=== PATIENT | male | born 1965 | race Caucasian/White ===

== ENCOUNTER 2018-05-15 10:40 | Inpatient (IN) | payer MEDICAID ==
[~2018-05-15] VITALS: Ht 177.8 cm; Wt 98.5 kg
[~2018-05-15 10:40] MED LIST: ASPI81TA30 PO; DIAZ10TA PO; LISI40TA4 PO; MECL-111 PO; METF500T PO; METO-292 PO; METO50TA16 PO
[2018-05-15] MEDS ORDERED: normal saline 1000ML IV soln IVB ONE (12:00)
[2018-05-15] MEDS ORDERED: ondansetron/PF 4mg/2ml inj IV ONE (12:00)
[2018-05-15 12:11] LABS: BASOPHILS # (AUTO) 0.1 X10'3 (0-0.2); BASOPHILS % (AUTO) 0.7 % (0-1); EOSINOPHILS # (AUTO) 0.1 X10'3 (0-0.9); EOSINOPHILS % (AUTO) 1.1 % (0-6); HEMATOCRIT 33.5 % (42.0-52.0); HEMOGLOBIN 11.8 g/dl (14.0-17.9); LYMPHOCYTES # (AUTO) 1.4 X10'3 (1.1-4.8); LYMPHOCYTES % (AUTO) 16.7 % (21-51); MEAN CORPUSCULAR HEMOGLOBIN 32.9 PG (27.0-31.0); MEAN CORPUSCULAR HGB CONC 35.2 % (33.0-36.5); MEAN CORPUSCULAR VOLUME 93.4 FL (78-98); MEAN PLATELET VOLUME 7.3 FL (7.4-10.4); MONOCYTES # (AUTO) 0.8 X10'3 (0-0.9); MONOCYTES % (AUTO) 9.8 % (2-12); NEUTROPHILS # (AUTO) 6.1 X10'3 (1.8-7.7); NEUTROPHILS % (AUTO) 71.7 % (42-75); PLATELET COUNT 194 X10'3 (140-440); RED BLOOD COUNT 3.58 X10'6 (4.70-6.10); RED CELL DISTRIBUTION WIDTH 13.4 % (11.5-14.5); WHITE BLOOD COUNT 8.6 X10'3 (4.5-11.0)
[2018-05-15] MEDS ORDERED: BUTA1TAB52 PO (12:14)
[2018-05-15] MEDS ORDERED: AMIT75TA2 PO (12:14)
[2018-05-15] MEDS ORDERED: GABA-532 PO (12:14)
[2018-05-15 12:25] LABS: ANION GAP 2 (8-16); BILIRUBIN,TOTAL 0.4 MG/DL (0.1-1.0); BLOOD UREA NITROGEN 23 MG/DL (7-18); BUN/CREATININE RATIO 13.8 (5.4-32.0); CALCIUM 8.7 MG/DL (8.5-10.1); CHLORIDE 98 MMOL/L (99-107); CREATININE 1.67 MG/DL (0.60-1.10); GLUCOSE 127 MG/DL (70-104); POTASSIUM 4.3 MMOL/L (3.5-5.1); SODIUM 136 MMOL/L (135-145); TOTAL CARBON DIOXIDE 35.7 MMOL/L (24-32); TOTAL PROTEIN 7.8 G/DL (6.4-8.2); eGFR 43 ML/MIN
[2018-05-15 12:26] LABS: ALANINE AMINOTRANSFERASE 31 U/L (12-78); ALBUMIN/GLOBULIN RATIO 1.1 (1.1-1.5); ALKALINE PHOSPHATASE 55 IU/L (46-116); ASPARTATE AMINO TRANSFERASE 23 U/L (10-37)
[2018-05-15 12:37] LABS: MAGNESIUM 4.2 MG/DL (1.5-2.4)
[2018-05-15] MEDS ORDERED: OXYC-658 PO (13:04)
[2018-05-15] MEDS ORDERED: PANT40TA4 PO (13:04)
[2018-05-15] MEDS ORDERED: METF500T PO (13:04)
[2018-05-15] MEDS ORDERED: ONDA8TAB13 PO (13:04)
[2018-05-15] MEDS ORDERED: LORA10TA7 PO (13:04)
[2018-05-15] MEDS ORDERED: MORP60CP14 PO (13:04)
[2018-05-15] MEDS ORDERED: LISI-600 PO (13:04)
[2018-05-15] MEDS ORDERED: morphine 4 MG/ML inj SYRINge IV PRN ×2 (15:20)
[2018-05-15] MEDS ORDERED: acetaminophen 325mg tablet PO PRN ×2 (15:20)
[2018-05-15] MEDS ORDERED: mag hydrox/Alum hydrox/simeth 30ml oral suspension PO PRN (15:20)
[2018-05-15] MEDS ORDERED: diphenhydrAMINE 25mg capsule PO PRN (15:20)
[2018-05-15] MEDS ORDERED: HYDROcodone/acetaminophen 10/325mg tab PO PRN (15:20)
[2018-05-15] MEDS ORDERED: diphenhydrAMINE 50 mg/ml inj IV PRN (15:20)
[2018-05-15] MEDS ORDERED: HYDROcodone/acetaminophen 5mg/325mg tablet PO PRN (15:20)
[2018-05-15] MEDS ORDERED: magnesium hydroxide 30ml (MOM) UD suspension PO PRN (15:20)
[2018-05-15] MEDS ORDERED: metoclopramide 5 mg/ml inj IV PRN (15:20)
[2018-05-15] MEDS ORDERED: bisacodyl 10mg suppository rectal RC PRN (15:20)
[2018-05-15] MEDS ORDERED: ondansetron/PF 4mg/2ml inj IV PRN (15:20)
[2018-05-15] MEDS ORDERED: HYDROmorphone 1 mg/ml syringe IV PRN (15:20)
[2018-05-15] MEDS ORDERED: acetaminophen 650mg rectal suppository RC PRN (15:20)
[2018-05-15] MEDS ORDERED: dextrose ORAL solution 15 GM/59 ML bottle PO PRN ×2 (15:30)
[2018-05-15] MEDS ORDERED: glucagon, human recombinant 1mg kit SUBCUT PRN (15:30)
[2018-05-15] MEDS ORDERED: MESSAGE TO PHARMACY PO ONE (15:30)
[2018-05-15] MEDS ORDERED: insulin Lispro (HumaLOG) vial - multi-dose SQ SCH (15:30)
[2018-05-15] MEDS ORDERED: dextrose 50%-water 50ml dispensing syringe IV PRN ×2 (15:30)
[2018-05-15] MEDS: normal saline 1000ml 1,000 ML IV SCH (15:36)
[2018-05-15] MEDS: HYDROmorphone 1 mg/ml syringe IV PRN (16:10)
[2018-05-15 16:35] LABS: HEMOGLOBIN A1C 6.1 % (4.5-6.2)
[2018-05-15 16:44] LABS: CREATINE KINASE 155 U/L (39-308); LIPASE 72 U/L (73-393); TROPONIN I < 0.04 NG/ML (0.0-0.05)
[2018-05-15 18:26] LABS: PARTIAL THROMBOPLASTIN TIME 26 SECONDS (22-32); PROTHROMBIN TIME 10.7 SECONDS (9.0-12.0)
[2018-05-15 19:59] VITALS: BP 166/101
[2018-05-15] MEDS: calcium gluconate inj. 1 GM in normal saline 100ml IV soln 90 ML IV SCH (20:39)
[2018-05-15] MEDS ORDERED: temazepam 15mg capsule PO PRN (21:00)
[2018-05-15] MEDS: lactulose 20gm/30ml cup PO SCH (21:08)
[2018-05-15] MEDS: docusate sod 100mg capsule PO SCH (21:09)
[2018-05-15] MEDS: heparin, porcine 5000 units/ml vial SQ SCH (21:09)
[2018-05-15] MEDS: polyethylene glycol 3350 17gm powd pack PO SCH (22:42)
[2018-05-16] VITALS: BP 167/94
[2018-05-16] MEDS ORDERED: AMIT150T PO (00:50)
[2018-05-16] MEDS: normal saline 1000ml 1,000 ML IV SCH (01:55)
[2018-05-16] MEDS: lactulose 20gm/30ml cup PO SCH ×3 (02:00→13:54)
[2018-05-16] MEDS: HYDROmorphone 1 mg/ml syringe IV PRN ×2 (05:25→17:18)
[2018-05-16 05:54] LABS: BASOPHILS % (AUTO) 0.9 % (0-1); EOSINOPHILS # (AUTO) 0.2 X10'3 (0-0.9); EOSINOPHILS % (AUTO) 3.3 % (0-6); HEMOGLOBIN 10.5 g/dl (14.0-17.9); LYMPHOCYTES # (AUTO) 1.1 X10'3 (1.1-4.8); LYMPHOCYTES % (AUTO) 20.2 % (21-51); MEAN CORPUSCULAR HEMOGLOBIN 32.4 PG (27.0-31.0); MEAN CORPUSCULAR HGB CONC 34.8 % (33.0-36.5); MEAN PLATELET VOLUME 7.6 FL (7.4-10.4); MONOCYTES # (AUTO) 0.6 X10'3 (0-0.9); MONOCYTES % (AUTO) 10.7 % (2-12); NEUTROPHILS # (AUTO) 3.4 X10'3 (1.8-7.7); NEUTROPHILS % (AUTO) 64.9 % (42-75); PLATELET COUNT 176 X10'3 (140-440); RED BLOOD COUNT 3.23 X10'6 (4.70-6.10); RED CELL DISTRIBUTION WIDTH 13.6 % (11.5-14.5); WHITE BLOOD COUNT 5.3 X10'3 (4.5-11.0)
[2018-05-16 06:05] LABS: ALANINE AMINOTRANSFERASE 27 U/L (12-78); ALBUMIN 3.6 G/DL (3.4-5.0); ALBUMIN/GLOBULIN RATIO 1.1 (1.1-1.5); ALKALINE PHOSPHATASE 50 IU/L (46-116); ANION GAP 5 (8-16); ASPARTATE AMINO TRANSFERASE 23 U/L (10-37); BILIRUBIN,TOTAL 0.6 MG/DL (0.1-1.0); BLOOD UREA NITROGEN 16 MG/DL (7-18); BUN/CREATININE RATIO 10.9 (5.4-32.0); CALCIUM 7.9 MG/DL (8.5-10.1); CHLORIDE 102 MMOL/L (99-107); CREATININE 1.47 MG/DL (0.60-1.10); GLUCOSE 144 MG/DL (70-104); POTASSIUM 3.8 MMOL/L (3.5-5.1); SODIUM 138 MMOL/L (135-145); TOTAL CARBON DIOXIDE 30.6 MMOL/L (24-32); TOTAL PROTEIN 6.9 G/DL (6.4-8.2); eGFR 50 ML/MIN
[2018-05-16 08:00] VITALS: BP 161/86
[2018-05-16] MEDS: calcium gluconate inj. 1 GM in normal saline 100ml IV soln 90 ML IV SCH (08:02)
[2018-05-16] MEDS: docusate sod 100mg capsule PO SCH (08:03)
[2018-05-16] MEDS: heparin, porcine 5000 units/ml vial SQ SCH (08:03)
[2018-05-16] MEDS: polyethylene glycol 3350 17gm powd pack PO SCH (08:04)
[2018-05-16 11:00] VITALS: BP 152/93
[2018-05-16] MEDS ORDERED: POLY17PO10 PO (12:33)
== END 2018-05-16 17:45 | disposition home or self-care (01) | DRG 247 ==
LOC: ER 10:44 → ED HOLD 15:19 → SUR 3N 19:45
PROVIDERS: ADMIT Family Medicine; ATTEND Family Medicine
DX: K56.7 Ileus, unspecified (principal); N17.9 Acute kidney failure, unspecified; I10 Essential (primary) hypertension; E83.41 Hypermagnesemia; E86.0 Dehydration; G89.4 Chronic pain syndrome; E11.9 Type 2 diabetes mellitus without complications; Z79.891 Long term (current) use of opiate analgesic; Z90.49 Acquired absence of other specified parts of digestive tract; Z88.2 Allergy status to sulfonamides; Z79.82 Long term (current) use of aspirin; Z79.84 Long term (current) use of oral hypoglycemic drugs; Z79.899 Other long term (current) drug therapy
CPT/HCPCS: 36415; 74176; 80053; 82550; 82948; 83036; 83690; 83735; 83880; 84100; 84484; 85025; 85610; 85730; 87070; 93005; 96361; 96374; 97116; 97161; 97530; 99285; J0610; J1170; J1644; J2270; J2405; J7030